=== PATIENT | female | born 1950 | race Two or more races ===

== ENCOUNTER → 2020-04-25 15:25 | Outpatient (CLI) | payer OTHER | END | disposition home or self-care (01) | LOC: LAB 15:25 | PROVIDERS: ATTEND Radiology Diagnostic Radiology | DX: N20.0 Calculus of kidney (principal) ==

== ENCOUNTER 2020-04-29 09:35 | Outpatient (CLI) | payer OTHER | END 2020-04-29 09:37 | disposition home or self-care (01) | LOC: TOM 09:35 | PROVIDERS: ATTEND Internal Medicine Gastroenterology | DX: R10.2 Pelvic and perineal pain (principal); R10.30 Lower abdominal pain, unspecified | CPT/HCPCS: 74177; Q9965 ==